=== PATIENT | female | born 2000 | race African-American/Black ===

== ENCOUNTER 2021-06-01 12:28 | Inpatient (IN) | payer OTHER ==
[~2021-06-01] VITALS: Ht 144.8 cm; Wt 65.4 kg
[2021-06-01 12:39] VITALS: BP 109/73; TEMP 100
[2021-06-01 13:09] LABS: PLATELET COUNT 235 K/uL (152-353); POTASSIUM 3.4 mmol/L (3.6-5.2)
--- NOTE | 2021-06-01 18:27 | NUR ---
RT TO ASSESS PT. PT IS ON 2LPM NC. SPO2 98%, HR 98. IS INSTRUCT COMPLETED AT THIS TIME. PT ENCOURAGED TO TAKE 5-10 BREATHS EVER HOUR.
[2021-06-01 18:46] VITALS: BP 95/61; TEMP 97.4; Ht 144.8 cm; Wt 65.4 kg
[2021-06-01 20:00] VITALS: BP 107/67; TEMP 97.6
[2021-06-02] VITALS: BP 98/61; TEMP 97.9
--- NOTE | 2021-06-02 02:53 | NUR ---
LATE ENTRY: 06/01/21 2100 PATIENT REPORTED BACK PAIN. PATIENT WAS GIVEN PRN PAIN MEDICATION. AFTER 30 MINUTES THE PATIENT REPORTED PAIN RELIEF. 2300: PATIENT IS RESTING QUIETLY WITH EYES CLOSED NAD BREATHING IS REGULAR NON LABORED
--- NOTE | 2021-06-02 03:43 | NUR ---
PATIENT DENIES ANY PAIN. PATIENT IS RESTING QUIETLY
[2021-06-02 04:00] VITALS: BP 93/61; TEMP 97.9
--- NOTE | 2021-06-02 06:40 | NUR ---
patient is resting well. denies any pain or sob
[2021-06-02 07:02] LABS: PLATELET COUNT 206 K/uL (152-353)
[2021-06-02 07:14] LABS: POTASSIUM 4.7 mmol/L (3.6-5.2)
[2021-06-02 08:00] VITALS: BP 98/67; TEMP 97.7
[2021-06-02 12:18] VITALS: BP 95/55; TEMP 98.4
--- NOTE | 2021-06-03 02:00 | NUR ---
LATE ENTRY: 06/02/212129 PATIENT REQUESTED "SOMETHING FOR PAIN AND COUGH AT 2129. SHE WAS GIVEN PRN MEDICATION. PATIENT REPORTS RELIEF
[2021-06-03 04:59] LABS: PLATELET COUNT 250 K/uL (152-353)
[2021-06-03 05:37] LABS: POTASSIUM 4.1 mmol/L (3.6-5.2)
[2021-06-03 20:00] VITALS: BP 101/63; TEMP 97
[2021-06-04 04:10] VITALS: BP 102/59; TEMP 99
[2021-06-04 04:51] LABS: PLATELET COUNT 282 K/uL (152-353); POTASSIUM 3.7 mmol/L (3.6-5.2)
[2021-06-04 08:00] VITALS: BP 99/60; TEMP 97.9
[2021-06-04 12:00] VITALS: BP 100/60; TEMP 97.3
--- NOTE | 2021-06-04 14:48 | NUR ---
PT 02 AT 96% ON RA, PT LYING IN HF, NAD NOTED, NONLABORED BREATHING, NO NEEDS AT THIS TIME, WILL CONTINUE TO MONITOR, CALL LIGHT WITHIN REACH
[2021-06-04 16:00] VITALS: BP 105/57; TEMP 97.5
[2021-06-04] MEDS ORDERED: ASCO500T18 PO (17:10)
[2021-06-04] MEDS ORDERED: BENZONATATE100 MG PO (17:10)
[2021-06-04] MEDS ORDERED: ZINC220C4 PO (17:11)
[2021-06-04] MEDS ORDERED: DECADRON4 MG PO (17:12)
[2021-06-04] MEDS ORDERED: ZITHROMAX500 MG PO (17:12)
--- NOTE | 2021-06-04 17:58 | NUR ---
IV D/C'd. NO REDNESS OR EDEMA OBSERVED. DISCHARGE PAPERS SIGNED.
--- NOTE | 2021-06-04 18:50 | NUR ---
Pt. EXIT OUT OFF SIDE REN DOOR VIA W/C. NO DISTRESS OBSERVED.
== END 2021-06-04 17:58 | disposition home or self-care (01) | DRG 177 ==
LOC: ED 12:28 → MED/SURG 16:30
PROVIDERS: Family Medicine; ADMIT Internal Medicine Endocrinology, Diabetes & Metabolism; ATTEND Internal Medicine Endocrinology, Diabetes & Metabolism
DX: U07.1 COVID-19 (principal); J12.82 Pneumonia due to coronavirus disease 2019; J96.01 Acute respiratory failure with hypoxia; E87.6 Hypokalemia
CPT/HCPCS: 36415; 80053; 85027; 87502; 87635; 87651; 94760; 99284; J0456; J1100; J1650; U0003